=== PATIENT | female | born 1995 | race Two or more races ===

== ENCOUNTER 2021-11-06 04:08 | Emergency (ER) | payer OTHER | END 2021-11-06 06:23 | disposition HB | LOC: ER 04:08 | DX: O20.9 Hemorrhage in early pregnancy, unspecified (principal); Z3A.13 13 weeks gestation of pregnancy; W18.30XA Fall on same level, unspecified, initial encounter; Y93.9 Activity, unspecified; Y92.9 Unspecified place or not applicable; Z91.018 Allergy to other foods ==